=== PATIENT | male | born 1975 | race Two or more races ===

== ENCOUNTER 2017-04-23 19:24 | Emergency (ER) | payer OTHER ==
[2017-04-23] MEDS ORDERED: IBUPROFEN 200 MG TAB PO ONE (19:36)
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
[2017-04-23] MEDS ORDERED: HYDROCOD/APAP 5/325 PREPACK#6 BTL TAKEHOME ONE (20:45)
[2017-04-23 21:03] VITALS: BP 131/66; PULSE 54; RESP 16; TEMP 98.2; O2SAT 96
== END 2017-04-23 21:02 | disposition home or self-care (01) ==
DX: S82.425A Nondisplaced transverse fracture of shaft of left fibula, initial encounter for closed fracture (principal); V18.0XXA Pedal cycle driver injured in noncollision transport accident in nontraffic accident, initial encounter; Y99.8 Other external cause status; Y93.55 Activity, bike riding